=== PATIENT | female | born 1985 | race Caucasian/White ===

== ENCOUNTER 2019-01-26 08:52 | Inpatient (IN) | payer BC ==
[~2019-01-26 08:52] MED LIST: Buffered Lidocaine 1% SYRIN* 1 ML/SYRINGE INTRADERM ONE; Famotidine IV* 10 MG/ML 2 ML (20 mg) IV ONE; Lactated Ringers 1000 ML Bag* 1,000 ML IV SCH; Sodium Citrate/Citric Acid* 15 ML UDC PO ONE
[2019-01-26] MEDS ORDERED: ceFOXitin 2 GM IVPREMIX* 2 GM/50 ML BAG ONE (09:32)
[2019-01-26] MEDS ORDERED: Morphine PF AMP (0.5MG/ML)* 5 MG/10 ML AMP ONE (10:44)
[2019-01-26] MEDS ORDERED: Ondansetron INJ* 2 MG/ML VIAL ONE (10:45)
[2019-01-26] MEDS ORDERED: OXYTOCIN* 10 UNITS/ML 1 ML VIAL ONE (10:45)
[2019-01-26] MEDS ORDERED: Phenylephrine 40 MCG/ML SYRINGE ONE (10:45)
[2019-01-26] MEDS ORDERED: Dexamethasone IV* 4 MG/ML 1 ML (4 MG) ONE (10:45)
[2019-01-26] MEDS ORDERED: Nalbuphine* 10 MG/ML 1 ML VIAL IV PRN (11:45)
[2019-01-26] MEDS ORDERED: fentaNYL* 50 MCG/ML 2 ML VIAL (100 MCG VIAL) IV PRN (11:45)
[2019-01-26] MEDS ORDERED: DiMENhydriNATE IV* 50 MG/ML VIAL IV PUSH PRN (11:45)
[2019-01-26] MEDS ORDERED: Naloxone* 0.4 MG/ML 1 ML VIAL IV PRN ×2 (11:45)
[2019-01-26] MEDS ORDERED: Ondansetron INJ* 2 MG/ML VIAL IV PRN (11:45)
[2019-01-26] MEDS ORDERED: oxyCODONE/Acetamin 5/325 MG* TAB PO PRN (11:45)
[2019-01-26] MEDS ORDERED: Ketorolac INJ* 30 MG/ML 1 ML VIAL IV PRN (11:45)
[2019-01-26] MEDS ORDERED: fentaNYL* 50 MCG/ML 2 ML VIAL (100 MCG VIAL) ONE ×2 (11:52→13:17)
[2019-01-26] MEDS ORDERED: Measles, Mumps,Rubella VACC* 0.5 ML/VIAL SUBCUT ONE (12:33)
[2019-01-26] MEDS ORDERED: Acetaminophen TAB* 325 MG PO PRN (12:33)
[2019-01-26] MEDS ORDERED: Witch Hazel PAD* JAR TOPICAL PRN (12:33)
[2019-01-26] MEDS ORDERED: Lactated Ringers 1000 ML Bag* 1,000 ML IV SCH (13:00)
[2019-01-26] MEDS: Docusate CAP* 100 MG PO SCH ×2 (14:57→20:18)
[2019-01-26] MEDS: Ibuprofen TAB* 600 MG PO SCH ×2 (15:37→21:41)
[2019-01-26] MEDS ORDERED: oxyCODONE/Acetamin 5/325 MG* TAB ONE (18:20)
[2019-01-26] MEDS: Simethicone TAB* 80 MG TAB.CHEW PO SCH ×2 (18:21→20:18)
[2019-01-26] MEDS: oxyCODONE/Acetamin 5/325 MG* TAB PO PRN ×2 (18:22→21:42)
--- NOTE | 2019-01-27 01:40 | OP ---
DATE OF OPERATION: 01/26/19 - ROOM #117 DATE OF : 87 SURGEON: Miguel Angel Gil MD ASSISTANTS: Sana Baptiste CNM and Nicole Gonzalez CNM ANESTHESIOLOGIST: Dr. Serrano. ANESTHESIA: Spinal. PRE-OP DIAGNOSIS: 39 weeks' gestation with history of previous section. POST-OP DIAGNOSIS: 39 weeks' gestation with history of previous section. OPERATIVE PROCEDURE: Repeat low-transverse section with vacuum assist. ESTIMATED BLOOD LOSS: 600 cc. URINE OUTPUT: 150 cc. IV FLUIDS: 2400 cc lactated Ringer's. MATERIALS TO LAB: Cord blood. INDICATIONS: This patient was a 33-year-old 2, para 1 at 39 weeks' gestation, who presented for a repeat section today. The patient's course was unremarkable. She was extensively counseled and consent was signed. FINDINGS: Normal-appearing uterus, fallopian tubes, and ovaries. Delivery was productive of a male weighing 7 pounds 9 ounces with Apgars of 9 and 9. Time of delivery was 11:35. COMPLICATIONS: None. DESCRIPTION OF PROCEDURE: The risks, benefits, and alternatives were described to the patient, and informed consent was obtained. The patient was taken to the operating room with IV running, where spinal anesthesia was induced and found to be adequate. The patient was prepped and draped in normal sterile fashion in the dorsal supine position with a leftward tilt. A Pfannenstiel skin incision was made with a scalpel through the patient's previous incision. This was carried down to the underlying fascia using the scalpel. The fascia was scored in the midline, and the incision was extended using Perla scissors. The fascia was dissected off the underlying rectus muscles using blunt and sharp dissection. The rectus muscles were in the midline using dissection with a Marisol clamp. The peritoneum was then entered bluntly. An Koko retractor was placed into the peritoneal cavity and tightened down against the skin. A bladder flap was created sharply using Metzenbaum scissors. A low transverse uterine incision was then made with the scalpel. This was carried down to the amniotic membranes. The membranes were then ruptured, productive of clear fluid. The uterine incision was extended using blunt traction. The head was elevated to the level of the incision, but the head could not be adequately guided up to through the incision. A Kiwi vacuum was placed on the head and with gentle traction and fundal pressure, the head was able to be lifted to the incision. The Kiwi then was found be defective, popping off with minimal tension three times. Fortunately, at that point, with fundal pressure, the head delivered without difficulty. The shoulders then were also both delivered and the body followed. The infant had good tone and cried shortly after delivery. The cord was doubly clamped and cut. The was then handed to the awaiting powersaw supervisor. Cord blood was collected. The placenta was delivered with manual extraction. The uterus was then exteriorized and cleared of all clots and debris. The uterine incision was then reapproximated using 0 Vicryl in a running-locked fashion. A second layer of imbricating 0 Vicryl sutures was then also placed for good hemostasis. The posterior cul-de-sac was irrigated with saline. The uterus was then returned to the abdomen. The incision was reinspected and still noted to be hemostatic. The peritoneum was closed with 3-0 Vicryl in a running fashion. The fascia was closed with 0 Vicryl in a running fashion. The subcutaneous tissues were copiously irrigated and made hemostatic using the Bovie. The subcutaneous tissues were then reapproximated using 3-0 Vicryl in interrupted sutures. The skin was then closed with 4-0 Monocryl in a subcuticular stitch and overlaid with Mastisol and steristrips. A sterile bandage was then placed over the incision. The patient tolerated the procedure well. Sponge, lap, and needle counts were correct x2. [id number]/[facility] #: [id number] NADER
[2019-01-27] MEDS: oxyCODONE/Acetamin 5/325 MG* TAB PO PRN (02:04)
[2019-01-27] MEDS ORDERED: oxyCODONE/Acetamin 5/325 MG* TAB PO PRN ×2 (03:00→03:45)
[2019-01-27] MEDS: Ibuprofen TAB* 600 MG PO PRN ×4 (04:18→21:48)
[2019-01-27] MEDS: Acetaminophen TAB* 325 MG PO PRN ×3 (06:07→21:48)
[2019-01-27] MEDS: Ibuprofen TAB* 600 MG PO SCH (07:08)
[2019-01-27 07:44] LABS: ABS Basophils 0 10^3/ul (0-0.2); ABS Eosinophils 0 10^3/ul (0-0.6); ABS Lymphocytes 3.2 10^3/ul (1.0-4.8); ABS Monocytes 1.5 10^3/ul (0-0.8); ABS Neutrophils 13.1 10^3/ul (1.5-7.7); ABS Nucleated RBC 0 10^3/ul; Eosinophil % 0.1 %; Hematocrit 31 % (33-41); Hemoglobin 10.2 g/dL (12.0-16.0); Lymphocyte % 17.7 %; Mean Corpuscular HGB Conc 34 g/dL (31-36); Mean Corpuscular Hemoglobin 30 pg (27-31); Mean Corpuscular Volume 89 fL (80-97); Mean Platelet Volume 9.9 fL (7.4-10.4); Nucleated Red Blood Cells % 0; Platelet Count 195 10^3/uL (150-450); Red Blood Count 3.42 10^6 /uL (3.70-4.87); Red Cell Distribution Width 14 % (10.5-15); White Blood Count 17.9 10^3/uL (3.5-10.8)
[2019-01-27] MEDS ORDERED: Ferrous Gluconate TAB* 324 MG TAB PO SCH (09:00)
[2019-01-27] MEDS: Simethicone TAB* 80 MG TAB.CHEW PO SCH ×4 (10:02→21:42)
[2019-01-27] MEDS: Docusate CAP* 100 MG PO SCH ×3 (10:02→21:42)
[2019-01-28] MEDS: Ibuprofen TAB* 600 MG PO PRN ×2 (03:34→10:10)
[2019-01-28] MEDS: Acetaminophen TAB* 325 MG PO PRN ×2 (03:34→07:47)
[2019-01-28] MEDS ORDERED: Tetan/Diph/Pertus SYR(Tdap)* 0.5 ML SYR(BOOSTRIX) use SYR IM ONE (06:36)
[2019-01-28 07:23] VITALS: BP 125/76
[2019-01-28] MEDS: Docusate CAP* 100 MG PO SCH (07:47)
[2019-01-28] MEDS: Simethicone TAB* 80 MG TAB.CHEW PO SCH (07:47)
== END 2019-01-28 11:54 | disposition home or self-care (01) | DRG 540 ==
LOC: MCHOB 08:52
PROVIDERS: ADMIT Obstetrics & Gynecology; ATTEND Obstetrics & Gynecology
PROC: 10D00Z1 Extraction of Products of Conception, Low, Open Approach (ICD-10-PCS; 2019-01-26)
PROC: 4A1HXCZ Monitoring of Products of Conception, Cardiac Rate, External Approach (ICD-10-PCS; principal; 2019-01-26 11:00)
DX: O34.211 Maternal care for low transverse scar from previous cesarean delivery (principal); Z3A.39 39 weeks gestation of pregnancy; Z37.0 Single live birth
CPT/HCPCS: 36415; 85025; 90707; A9270-GY; J0694; J1100; J2405; J2590; J3010